=== PATIENT | female | born 1930 | race Caucasian/White ===

== ENCOUNTER 2016-12-11 09:24 | Outpatient (CLI) | payer MEDICARE, OTHER | END 2016-12-11 09:25 | LOC: LAB 09:24 | PROVIDERS: ATTEND Family Medicine | DX: E11.9 Type 2 diabetes mellitus without complications (principal) | CPT/HCPCS: 36415; 83036 ==

== ENCOUNTER 2017-03-13 09:29 | Outpatient (CLI) | payer MEDICARE, OTHER | END 2017-03-13 09:30 | LOC: LAB 09:29 | PROVIDERS: ATTEND Family Medicine | DX: E11.9 Type 2 diabetes mellitus without complications (principal) | CPT/HCPCS: 36415; 83036 ==

== ENCOUNTER 2017-09-10 08:51 | Outpatient (CLI) | payer MEDICARE, OTHER ==
[2017-09-10 09:31] LABS: eGFR (African) > 60; eGFR (Non-African) > 60
== END 2017-09-10 08:52 ==
LOC: LAB 08:51
PROVIDERS: ATTEND Family Medicine
DX: E11.9 Type 2 diabetes mellitus without complications (principal); E78.2 Mixed hyperlipidemia
CPT/HCPCS: 36415; 80053; 80061; 83036

== ENCOUNTER 2018-03-18 08:37 | Outpatient (CLI) | payer MEDICARE, OTHER | END 2018-03-18 08:40 | LOC: LAB 08:37 | PROVIDERS: ATTEND Family Medicine | DX: E11.9 Type 2 diabetes mellitus without complications (principal) | CPT/HCPCS: 36415; 83036 ==

== ENCOUNTER 2018-08-28 11:37 | Outpatient (CLI) | payer MEDICARE, OTHER ==
--- NOTE | 2018-08-29 04:55 | Diagnostic Imaging Report ---
JENNIFER ROMAN [facility] [id number] [facility] [address] [id number] Report Submission Date: Aug 28, 2018 2:09:20 PM CLINICAL DIETITIAN Patient Study Name: NEO STEVEN Date: Aug 28, 2018 11:52:38 AM CLINICAL DIETITIAN Modality Type: DX Gender: F Description: PELVIS : 34 Institution: [facility] Physician: JENNIFER ROMAN Left hip History: Pain AP and frogleg lateral projections of the left hip demonstrate minor osteoarthritic findings. Otherwise, no osseous abnormalities are noted. The left SI joint is patent. 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 Otherwise, no osseous abnormality. Electronically signed on Aug 28, 2018 2:09:20 PM CLINICAL DIETITIAN by: Dean KERN
== END 2018-08-28 11:40 ==
LOC: RAD 11:37
PROVIDERS: ATTEND Family Medicine
DX: M16.12 Unilateral primary osteoarthritis, left hip (principal); M25.552 Pain in left hip

== ENCOUNTER 2018-11-20 15:20 | Outpatient (CLI) | payer MEDICARE, OTHER ==
[2018-11-20 16:01] LABS: eGFR (Non-African) > 60
== END 2018-11-20 15:22 ==
LOC: LAB 15:20
PROVIDERS: ATTEND Family Medicine
DX: E11.9 Type 2 diabetes mellitus without complications (principal)
CPT/HCPCS: 36415; 80053; 80061; 83036

== ENCOUNTER 2019-05-22 09:13 | Outpatient (CLI) | payer MEDICARE, OTHER ==
[2019-06-03 09:14] LABS: A1C 6.7 % (<5.7); HDL 52 mg/dL (>40); eGFR (Non-African) 43
== END 2019-05-22 09:25 ==
LOC: LAB 09:13
PROVIDERS: ATTEND Family Medicine
DX: E11.9 Type 2 diabetes mellitus without complications (principal)
CPT/HCPCS: 36415; 80048; 80061; 83036